=== PATIENT | female | born 1960 | race Two or more races ===

== ENCOUNTER 2024-05-06 18:31 | Emergency (ER) | payer MEDICARE, MEDICAID ==
[~2024-05-06] VITALS: Ht 152.4 cm; Wt 58.2 kg
--- NOTE | 2024-05-06 19:07 | ED.PDOC ---
History of Present Illness HPI Comments 63 y/o F presents with c/o generalized weakness, shortness of breath, and nausea, today. Patient is a poor historian and reports on coming to the ED for recent onset of aforementioned symptoms for unknown duration of time in addition to sensation of her "body shutting down." Patient endorses on no recent sick contact, travel, or any additional relevant or pertinent Hx. She denies having any chest pain, palpitations, cough, wheezing, fever, chills, or other associated symptoms or modifiers at this time. Chief Complaint: General Weakness Time Seen by MD: 18:49 Primary Care Provider: ROWDY Reviewed Notes: Nurses Notes, Medications, Allergies Allergies: Coded Allergies: Cefaclor (Verified Allergy, Severe, 05/06/24) Cephalexin (Verified Allergy, Severe, 05/06/24) Information Source: Patient Mode of Arrival: Ambulatory Severity: Moderate Timing: Hours Duration: Since onset Prehospital treatment: None Past Medical History PAST MEDICAL HISTORY: Arthritis, Asthma, HTN, Seizures Past Medical History (Other): lupus, hard of hearing Surgical History: Hernia Repair (umbilical), Tonsillectomy INTELLIGENCE CHIEF History: Denies all INTELLIGENCE CHIEF Hx Family History Family History: Unknown Social History Smoker: Cigarettes Alcohol: Occasionally Drugs: Marijuana Lives In: Home Respiratory: reports: shortness of breath Gastrointestinal: reports: nausea Neurological: reports: weakness All Other Systems: Reviewed and Negative (negative unless otherwise stated above or in HPI) Physical Exam General Appearance: No Apparent Distress, Normal HEENT: Normal ENT Inspection, Pharynx Normal, TMs Normal Neck: Full Range of Motion, Non-Tender, Normal, Normal Inspection Respiratory: Chest Non-Tender, Lungs Clear, No Accessory Muscle Use, No Respiratory Distress, Normal Breath Sounds Cardiovascular: No Edema, No JVD, No Murmur, No Gallop, Normal Peripheral Pulses, Regular Rate/Rhythm Breast Exam: Deferred Gastrointestinal: No Organomegaly, Non Tender, No Pulsatile Mass, Normal Bowel Sounds, Soft Genitalia: Deferred Pelvic: Deferred Rectal: Deferred Extremities: No calf tenderness, Normal capillary refill, Normal inspection, Normal range of motion, Non-tender, No pedal edema Musculoskeletal : Apperance: Normal Neurologic: Alert, bladder changer II-XII nml as Tested, No Motor Deficits, Normal Affect, Normal Mood, No Sensory Deficits Cerebellar Function: Normal Reflexes: Normal Skin: Dry, Normal Color, Warm Lymphatic: No Adenopathy Was a procedure done? Was a procedure done?: No Differential Dx Considerations may include: viral syndrome, URI, bronchitis, PNA, pleural effusions X-Ray, Labs, Meds, VS Vital Signs Date Time Temp Pulse Resp B/P (MAP) Pulse Ox O2 Delivery O2 Flow Rate FiO2 05/06/24 20:55 97.7 103 16 97/63 (74) 97 97.7 05/06/24 18:31 97.9 87 18 109/68 (82) 100 Lab Test 05/06/24 19:22 Range/Units White Blood Count 17.6 H 4.4-10.8 10^3/uL Red Blood Count 3.60 L 4.0-5.20 10^6/uL Hemoglobin 11.6 L 12.2-16.2 g/dL Hematocrit 33.8 L 36.0-46.0 % Mean Corpuscular Volume 93.8 80.0-100.0 fL Mean Corpuscular Hemoglobin 32.1 H 28.0-32.0 pg Mean Corpuscular Hemoglobin Concent 34.3 32.0-36.0 g/dL Red Cell Distribution Width 13.9 11.8-14.3 % Platelet Count 530 H 140-450 10^3/uL Mean Platelet Volume 8.6 6.9-10.8 fL Neutrophils (%) (Auto) 37.0-80.0 % Lymphocytes (%) (Auto) 10.0-50.0 % Monocytes (%) (Auto) 0.0-12.0 % Basophils (%) (Auto) 0.0-2.0 % Neutrophils # (Auto) 1.6-8.6 10 ^3/uL Lymphocytes # (Auto) 0.4-5.4 10 ^3/uL Monocytes # (Auto) 0-1.3 10 ^3/uL Differential Total Cells Counted 100.0 100 Neutrophils % (Manual) 75 37.0-80.0 Band Neutrophils % (Manual) 4 Lymphocytes % (Manual) 15 10.0-50.0 Monocytes % (Manual) 5 0-12 Eosinophils % (Manual) 0 0-7 Basophils % (Manual) 1 0.0-2.0 Metamyelocytes % (manual) 0 Myelocytes % (Manual) 0 Promyelocytes % (Manual) 0 Blast Cells % (Manual) 0 Reactive Lymphocytes 0 Platelet Estimate Increased Sodium Level 135 L 136-145 mmol/L Potassium Level 4.2 3.5-5.1 mmol/L Chloride Level 101 98-107 mmol/L Carbon Dioxide Level 26 20-31 mmol/L Anion Gap 8 5-15 Blood Urea Nitrogen 22 9-23 mg/dL Creatinine 0.91 0.550-1.02 mg/dL Glomerular Filtration Rate Calc 71 >90 mL/min BUN/Creatinine Ratio 24.2 H 10.0-20.0 Serum Glucose 113 H 74-106 mg/dL Calcium Level 9.1 8.7-10.4 mg/dL Magnesium Level 0.9 *L 1.6-2.6 mg/dL Total Bilirubin 0.7 0.2-1.0 mg/dL Aspartate Amino Transferase (AST) 39 13-40 U/L Alanine Aminotransferase (ALT) 44 H 7-40 U/L Alkaline Phosphatase 177 H 46-116 U/L Troponin I High Sensitivity 10 </=34 ng/L Total Protein 6.8 5.7-8.2 g/dL Albumin 3.6 3.2-4.8 g/dL Current Medications Medications (Trade) Dose Ordered Sig/Treasure Route Start Time Stop Time Status Last Admin Magnesium Oxide (Mag-Ox Tablet) 800 mg ONCE ONCE PO 05/06/24 20:30 05/06/24 20:31 DC 05/06/24 20:55 [place] [id number] Ph: [phone] DIAGNOSTIC IMAGING Diagnostic Imaging Report : [id number] Signed PATIENT: GHAZAL BURGESS ACCT: [id number] UNIT: [id number] : 1960 LOC: ER ROOM / BED: / AGE / SEX: 63 / F ADM STATUS: REG ER SERVICE 15 ORDERING PHYSICIAN: REGULO MARADIAGA MD PROCEDURE(s): THOSP - SPINE THORACIC 2VIEW REASON: OSTEOARTHRITIS ORDER NUMBER(s): [id number], ACCESSION NUMBER(s): [id number] INDICATION: OSTEOARTHRITIS COMPARISON: None TECHNIQUE: Multiple views of the cervical, thoracic, lumbar spine. Findings/ IMPRESSION: No acute fracture. Grade 2 anterolisthesis of L5 on S1 with bilateral pars defects. No significant degenerative changes of the lumbar spine. No significant degenerative changes of the thoracic spine. Mild multilevel degenerative changes of the cervical spine. No prevertebral soft tissue thickening. ATED BY: KAYLENE KRAUS DO DICTATED DATE/TIME: 05/06/242058 SIGNED BY: KAYLENE KRAUS DO SIGNED DATE/TIME: 05/06/242058 CC: [place] [id number] Ph: [phone] DIAGNOSTIC IMAGING Diagnostic Imaging Report : [id number] Signed PATIENT: GHAZAL BURGESS ACCT: [id number] UNIT: [id number] : 1960 LOC: ER ROOM / BED: / AGE / SEX: 63 / F ADM STATUS: REG ER SERVICE 15 ORDERING PHYSICIAN: REGULO MARADIAGA MD PROCEDURE(s): LUMB2 - LUMBAR SPINE 3 VIEW REASON: OSTEOARTHRITIS ORDER NUMBER(s): [id number], ACCESSION NUMBER(s): [id number] INDICATION: OSTEOARTHRITIS COMPARISON: None TECHNIQUE: Multiple views of the cervical, thoracic, lumbar spine. Findings/ IMPRESSION: No acute fracture. Grade 2 anterolisthesis of L5 on S1 with bilateral pars defects. No significant degenerative changes of the lumbar spine. No significant degenerative changes of the thoracic spine. Mild multilevel degenerative changes of the cervical spine. No prevertebral soft tissue thickening. ATED BY: KAYLENE KRAUS DO DICTATED DATE/TIME: 05/06/242058 SIGNED BY: KAYLENE KRAUS DO SIGNED DATE/TIME: 05/06/242058 CC: [place] [id number] Ph: [phone] DIAGNOSTIC IMAGING Diagnostic Imaging Report : [id number] Signed PATIENT: GHAZAL BURGESS ACCT: [id number] UNIT: [id number] : 1960 LOC: ER ROOM / BED: / AGE / SEX: 63 / F ADM STATUS: REG ER SERVICE 04 ORDERING PHYSICIAN: REGULO MARADIAGA MD PROCEDURE(s): CERV2 - CERVICAL SPINE 3V REASON: sprain ORDER NUMBER(s): [id number], ACCESSION NUMBER(s): [id number] INDICATION: OSTEOARTHRITIS COMPARISON: None TECHNIQUE: Multiple views of the cervical, thoracic, lumbar spine. Findings/ IMPRESSION: No acute fracture. Grade 2 anterolisthesis of L5 on S1 with bilateral pars defects. No significant degenerative changes of the lumbar spine. No significant degenerative changes of the thoracic spine. Mild multilevel degenerative changes of the cervical spine. No prevertebral soft tissue thickening. ATED BY: KAYLENE KRAUS DO DICTATED DATE/TIME: 05/06/242058 SIGNED BY: KAYLENE KRAUS DO SIGNED DATE/TIME: 05/06/242058 CC: White blood cell count is 17.6 hemoglobin 11.6 and platelet is 586. Magnesium is 0.9. Patient was given magnesium. The patient complains of multiple chronic medical condition and is vague about most surface symptoms. We will put on magnesium and have her follow up with the primary care physician. Time of 1ST Reevaluation: 19:19 Reevaluation 1ST: Unchanged Patient Education/Counseling: Diagnosis, Treatment Family Education/Counseling: No Family Present Departure 1 Departure Time of Disposition: 23:00 Impression: Primary Impression: Osteoarthritis Qualified Codes: M19.90 - Unspecified osteoarthritis, unspecified site Additional Impressions: Spinal abscess Spondylolisthesis, lumbar region Degenerative arthritis Qualified Codes: M15.0 - Primary generalized (osteo)arthritis Hypomagnesemia Disposition: HOME / SELF CARE / HOMELESS Condition: Stable Additional Instructions: Reassessed patient, vital signs stable. Denies any new symptoms. Patient is able to tolerate PO and ambulate/be mobile at their baseline without concern. Risks and benefits of all medications given or prescribed, if any, discussed. All lab work, imaging and diagnostic studies were reviewed by me. The patient was counseled extensively on my clinical impression, diagnosis, expected course of the disease, and plan, including their follow-up care. Will discharge patient. Patient instructed to follow up with Primary Care Physician within 24-48 hours. Strict return precautions given for further exacerbation of symptoms or for new symptoms. The patient was given the opportunity to ask questions and all questions were answered by myself and the nursing/tech staff. Patient is in agreement with the care plan. The patient verbally expressed understanding of the discharge instructions, including the reasons to return to the Emergency Department. e-Prescriptions Magnesium Oxide (MAGNESIUM OXIDE) 400 Mg Tab 1 TAB PO DAILY, #30 TAB 5 Refills Prov: REGULO MARADIAGA MD 05/06/24 Discharged With: Self Critical Care Note Critical Care Time?: No Stability Stability form required: No Heart Score Heart Score: Heart Score Response (Comments) Value History N/A 0 EKG N/A 0 Age N/A 0 Risk Factors N/A 0 Troponin N/A 0 Total 0 I personally scribed for REGULO MARADIAGA MD ([email or web address]) on 05/06/24 at 19:07. Electronically submitted by Gil Barahona ([email or web address]). I personally scribed for REGULO MARADIAGA MD ([email or web address]) on 05/06/24 at 22:38. Electronically submitted by Gil Barahona ([email or web address]). REGULO MARADIAGA MD May 06, 2024 19:07
[2024-05-06 19:58] LABS: Hematocrit 33.8 % (36.0-46.0)
[2024-05-06 20:03] LABS: Hemoglobin 11.6 g/dL (12.2-16.2); Mean Corpuscular Hemoglobin 32.1 pg (28.0-32.0); Mean Corpuscular Hgb Conc. 34.3 g/dL (32.0-36.0); Mean Corpuscular Volume 93.8 fL (80.0-100.0); Platelet Count (auto) 530 10^3/uL (140-450); Red Cell Distribution Width 13.9 % (11.8-14.3); White Blood Cell 17.6 10^3/uL (4.4-10.8)
[2024-05-06 20:15] LABS: Blast Cells 0; Eosinophils % (manual) 0 (0-7); Metamyelocytes % 0; Myelocytes % 0; Promyelocytes % 0; Reactive Lymphocytes 0
[2024-05-06 20:16] LABS: Albumin 3.6 g/dL (3.2-4.8); Anion Gap 8 (5-15); Aspartate Aminotransferase 39 U/L (13-40); BUN/Creatinine Ratio 24.2 (10.0-20.0); Blood Urea Nitrogen 22 mg/dL (9-23); Calcium 9.1 mg/dL (8.7-10.4); Carbon Dioxide 26 mmol/L (20-31); Chloride 101 mmol/L (98-107); Potassium 4.2 mmol/L (3.5-5.1)
[2024-05-06 20:17] LABS: Alanine Aminotransferase 44 U/L (7-40); Alkaline Phosphatase 177 U/L (46-116); Bilirubin, Total 0.7 mg/dL (0.2-1.0); Glucose 113 mg/dL (74-106); Sodium 135 mmol/L (136-145); Total Protein 6.8 g/dL (5.7-8.2)
[2024-05-06 20:21] LABS: Magnesium 0.9 mg/dL (1.6-2.6)
[2024-05-06] MEDS: MAGNESIUM OXIDE 400 MG TAB PO ONE (20:55)
--- NOTE | 2024-05-06 21:02 | DVH ---
INDICATION: OSTEOARTHRITIS COMPARISON: None TECHNIQUE: Multiple views of the cervical, thoracic, lumbar spine. Findings/ IMPRESSION: No acute fracture. Grade 2 anterolisthesis of L5 on S1 with bilateral pars defects. No significant de generative changes of the lumbar spine. No significant degenerative changes of the thoracic spine. Mi ld multilevel degenerative changes of the cervical spine. No prevertebral soft tissue thickening.
[2024-05-06 21:35] LABS: Band Neutrophils % (manual) 4; Basophils % (manual) 1 (0.0-2.0); Lymphocytes % (manual) 15 (10.0-50.0); Monocytes % (manual) 5 (0-12); Platelet Estimate Increased
[2024-05-06] MEDS ORDERED: MAGN400T40 PO (23:08)
[2024-05-07 00:28] VITALS: BP 98/54; PULSE 84; RESP 18; TEMP 97.9; O2SAT 95
== END 2024-05-07 09:35 | disposition home or self-care (01) ==
LOC: ER 18:31
DX: M19.90 Unspecified osteoarthritis, unspecified site (principal); G06.1 Intraspinal abscess and granuloma; M43.16 Spondylolisthesis, lumbar region; M43.17 Spondylolisthesis, lumbosacral region; M47.812 Spondylosis without myelopathy or radiculopathy, cervical region; I10 Essential (primary) hypertension; J45.909 Unspecified asthma, uncomplicated; F17.210 Nicotine dependence, cigarettes, uncomplicated; Z88.1 Allergy status to other antibiotic agents; Z90.89 Acquired absence of other organs; Z98.890 Other specified postprocedural states
CPT/HCPCS: 36415; 72040; 72070; 72100; 80053; 83735; 84484; 85007; 85027

== ENCOUNTER 2024-05-06 23:48 | Emergency (ER) | payer MEDICARE, MEDICAID ==
[~2024-05-06 23:48] MED LIST: MAGN400T40 PO
== END 2024-05-07 00:16 | disposition left against medical advice (07) ==
LOC: ER 23:48
DX: R68.89 Other general symptoms and signs (principal); Z53.21 Procedure and treatment not carried out due to patient leaving prior to being seen by health care provider

== ENCOUNTER 2024-10-23 06:49 | Day surgery (SDC) | payer MEDICARE, MEDICAID ==
[2024-10-23] VITALS (8 sets, daily range): BP systolic 117–139; BP diastolic 65–88; PULSE 93–109; RESP 15–20; TEMP 98.5; O2SAT 92–95
[~2024-10-23] VITALS: Ht 152.4 cm; Wt 60.8 kg
[~2024-10-23 06:49] MED LIST changes: +ALBUAER3 IN; +ATOR40TA52 PO; +B COCAP OR; +DIVA500T13 PO; +FLUT1AER17 IN; +FLUT50SP; +FORM20NE3 IN; +HYDR-4902 PO; +HYDR200T36 PO; +LACO150T PO; +LEVO88TA4 PO; +LORA-622 PO; +LOSA-535 PO; +METO-158 PO; +PANT40T PO; +TIZA4CAP PO; +[UNRECOGNIZED DRUG - CODE] XX
[2024-10-23] MEDS: IODIXANOL 320MG/ML 100ML BTL IV ONE (07:20)
[2024-10-23] MEDS: ANGIOMAX 250 MG VIAL IV ONE (07:29)
[2024-10-23] MEDS: VERAPAMIL 2.5MG/ML INJ 2ML VIAL IV ONE (07:30)
[2024-10-23] MEDS: HEPARIN SODIUM (PORCINE) 5000 UNITS/ML 1ML VIAL ONE (07:30)
[2024-10-23] MEDS: SODIUM CHL 0.9% 0 ML ONE (07:31)
[2024-10-23] MEDS: fentaNYL CITRATE 100 MCG/2 ML VL ONE (07:31)
[2024-10-23] MEDS: MIDAZOLAM HCL 2MG/2ML 2ml VIAL (1mg/ml) ONE (07:31)
[2024-10-23] MEDS: LIDOCAINE 2%HCL (LOCAL ANESTH.) INJ 20ML MDV ONE (07:32)
--- NOTE | 2024-10-23 08:28 | DVHOP2 ---
Operative Report Procedures performed: Left heart catheterization and bilateral coronary angiogram Moderate sedation Diagnosis: Nonobstructive coronary artery disease (mild disease) LVEF of 65% with normal LVEDP Cardiac suggestion for management: Optimized medical therapy Lifestyle and risk factor modifications Findings: LVEF: 65% LVEDP: 9 mm Hg There was no transaortic valve pressure gradient Left main: Left main was a very short vessel with no angiographic evidence of disease. LAD: LAD was a large vessel coming off the left main. First diagonal was small caliber vessel. Second diagonal was medium-sized caliber vessel. Third diagonal was small-caliber vessel. LAD and branches had mild diffuse disease (mild plaques were mostly seen in mid LAD section). LCX: LCX was coming off the left main. OM1 was a large caliber vessel. OM2 was medium-sized vessel. Om 3 was small caliber vessel. LCX throughout its course and branches revealed minor luminal irregularities. RCA: RCA was coming off the right sinus of Valsalva. It was a dominant vessel and provided RPDA. RCA throughout its course and branches revealed minor luminal irregularities. It is of note that the fluoroscopy revealed significant mitral annular calcif ication Presentation: Patient is a 64-year-old female who presented to the office with chest pain and exertional intolerance. Past medical history includes hypertension, hyperlipidemia, hypothyroidism, COPD, old history of breast mass, DJD, questionable lupus, seizure disorder, thyroid nodule, questionable valvular heart disease, old history of cervical cancer and old history of pulmonary hypertension. Echocardiogram of April 2024 revealed ejection fraction of 65- 70%, mild concentric left ventricular hypertrophy, moderate left atrial enlargement, severe nodular calcification (mostly of posterior leaflet), [id number] mitral regurgitation and no pulmonary hypertension. Lexiscan of March 2022 had revealed mostly fixed defects. Patient was sent for cardiac catheterization. Procedure: After obtaining informed consent, the patient was brought to the optical laboratory technician. She was prepped and draped in sterile fashion. Right radial artery was used for access site. 1 mg of Versed and 50 mcg of fentanyl were used for moderate sedation. Using Seldinger technique, the right radial artery was accessed and a 6 Kosovan slender sheath was inserted into it. 2.5 mg of verapamil and 100 mcg of nitroglycerin were given as a cocktail into the right radial sheath. 3000 units of heparin was given peripherally. A 5 Kosovan tiger 4 diagnostic catheter was used to perform left heart catheterization (obtaining pressures and performing left ventriculography) and bilateral coronary angiography. There was no indication for any transcatheter revascularization. Total bleeding was less than 5 mL. There was no dissection/hematoma/perforation. Patient tolerated the procedure with no complication. Right radial artery access site was managed by deploying a TR band. Fluoroscopy time: 2.5 minutes contrast: 30 mL of TalipaIOANA Hinojosa MD Oct 23, 2024 08:28
== END 2024-10-23 10:57 | disposition home or self-care (01) ==
LOC: CATH 06:49
PROVIDERS: ATTEND Internal Medicine Cardiovascular Disease
DX: I25.10 Atherosclerotic heart disease of native coronary artery without angina pectoris (principal); I10 Essential (primary) hypertension; I34.0 Nonrheumatic mitral (valve) insufficiency; I27.20 Pulmonary hypertension, unspecified; E78.5 Hyperlipidemia, unspecified; E03.9 Hypothyroidism, unspecified; J44.9 Chronic obstructive pulmonary disease, unspecified; F17.210 Nicotine dependence, cigarettes, uncomplicated; Z79.899 Other long term (current) drug therapy; Z79.890 Hormone replacement therapy; Z85.41 Personal history of malignant neoplasm of cervix uteri
CPT/HCPCS: 93458; C1894; J1644; J2250; J3010; Q9967; 99152